=== PATIENT | male | born 1985 | race Caucasian/White ===

== ENCOUNTER 2017-07-18 01:53 | Emergency (ER) | payer BC ==
[~2017-07-18] VITALS: Ht 175.3 cm; Wt 93.0 kg
[~2017-07-18 01:53] MED LIST: PROT40TA PO; RISP2TAB2 PO; RIVA20 PO; ROXI30TA14 PO; XANA1TAB6 PO
[2017-07-18 01:55] VITALS: BP 173/88; PULSE 114; RESP 16; TEMP 97.7; O2SAT 99
--- NOTE | 2017-07-18 03:52 | RADRPT ---
EXAM DATE/TIME: 07/18/2017 03:28 [facility] COMPARISON: CHEST SINGLE AP, June 20, 2015, 16:05. INDICATIONS : Shortness of breath, chest pain. MEDICAL HISTORY : None. SURGICAL HISTORY : None. ENCOUNTER: Initial ACUITY: 1 day PAIN SCORE: 0/10 LOCATION: Bilateral chest FINDINGS: A single view of the chest demonstrates the lungs to be symmetrically aerated without evidence of mas s, infiltrate or effusion. The cardiomediastinal contours are unremarkable. Osseous structures are intact. CONCLUSION: No evidence of acute cardiopulmonary disease. Gideon Hillman MD on July 18, 2017 at 3:50 Board Certified Radiologist. This report was verified electronically.
--- NOTE | 2017-07-18 03:56 | PD ---
HPI Chief Complaint: Abdominal Pain Time Seen by Provider: 03:26 Travel History International Travel<30 days: No Contact w/Intl Traveler<30days: No Traveled to known affect area: No History of Present Illness HPI The patient is a 32 year old male who presents to the [facility] emergency department with a history of abdominal pain that began 2 days ago. It was coming and going and now is becoming constant. 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 He has been experiencing increased indigestion and acid reflux. He is taking Protonix twice daily. He has a history of gastroparesis, dx in 2011. His GI doctor, Dr. Denney in [facility]. In spite of taking Zofran he continues to have vomiting. He has had n/v 6-7 x today. He has not had any blood in his vomit. He has blood on the TP when he wipes however he reports having a history of hemorrhoids. He has chronic diarrhea, usually 2-4 x per day. He is on Xarelto for anticoagulation and has been on this for the last 2 years. He has had hot flashes, night sweats- that began last week. He has urinary incontinence with difficulty starting his stream of urine for 3 years- unknown cause. On review of systems, he denies having any recent fevers, cough, congestion, neck pain, shortness of breath, new urinary symptoms, or neurologic symptoms. He has protein C deficiency. He is followed by a field service tech in [place], [place]. [facility] Past Medical History Narrative Medical The patient's past medical history is significant for gastroparesis, acid reflux , pulmonary embolism, protein C deficiency, anxiety and depression. Hx Anticoagulant Therapy: Yes (XARALTO) Blood Disorders: No Anxiety: Yes Depression: Yes Heart Rhythm Problems: No Cancer: No Cardiovascular Problems: No High Cholesterol: No Chemotherapy: No Chest Pain: No Congestive Heart Failure: No Diabetes: No Diminished Hearing: No Endocrine: No Gastrointestinal Disorders: Yes (IBS, ESOPHAGITIS, RECTAL WALL COLLAPSE) GERD: Yes Genitourinary: No Hypertension: No Immune Disorder: No Implanted Vascular Access Dvce: No Musculoskeletal: No Neurologic: No Psychiatric: Yes Respiratory: Yes (PNA 2014) Immunizations Current: Yes Radiation Therapy: No Thyroid Disease: No Ulcer: No Tetanus Vaccination: < 5 Years Influenza Vaccination: Yes Past Surgical History Narrative Surgical The patient's past surgical history is significant for a cholecystectomy, wisdom teeth, tonsillectomy. Cholecystectomy: Yes (11/2012) Oral Surgery: Yes (2003 - WISDOM TEETH REMOVAL) Tonsillectomy: Yes (03/22/2008) Other Surgery: Yes (wisdom teeth removed and t and a) Social History Alcohol Use: No Tobacco Use: Yes (10/18 ppd) Substance Use: No Allergies-Medications (Allergen,Severity, Reaction): Coded Allergies: morphine (Unverified Allergy, Severe, Cardiac Arrest, 07/18/17) per patient, coded in evac after given morphine. 03/12/14: PT DENIES tramadol (Unverified Adverse Reaction, Intermediate, hives, 07/18/17) Reported Meds & Prescriptions Reported Meds & Active Scripts Active Reported Xarelto 20 Mg Tab (Rivaroxaban) 20 Mg Tab 20 Mg PO DAILY Protonix (Pantoprazole Sodium) 40 Mg Tab 40 Mg PO DAILY Roxicodone (Oxycodone HCl) 30 Mg Tab 30 Mg PO QID PRN Risperdal (Risperidone) 2 Mg Tab 2 Mg PO HS Xanax 1 mg (Alprazolam) Alprazolam 1 mg Tab 2 Mg PO QID Review of Systems Except as stated in HPI: all other systems reviewed are Neg General / Constitutional: No: Fever Eyes: No: Visual changes HENT: No: Headaches Cardiovascular: Positive: Chest Pain or Discomfort (radiation from his midepi abdominal pain) Respiratory: No: Cough, Shortness of Breath Gastrointestinal: Positive: Nausea, Vomiting, Diarrhea, Abdominal Pain, Indigestion, No: Hematemesis, Constipation, Loss of Appetite Genitourinary: No: Dysuria Musculoskeletal: No: Pain Skin: No Rash Neurologic: No: Weakness Psychiatric: No: Depression Endocrine: No: Polydipsia Hematologic/Lymphatic: No: Easy Bruising Physical Exam Narrative General: The patient is well-developed well-nourished male in no acute distress. Head and Neck exam: Head is normocephalic atraumatic. Eyes: EOMI, pupils are equal round and reactive to light. Nose: Midline septum with pink mucous membranes Mouth: Dentition unremarkable. Moist mucus membranes. Posterior oropharynx is not erythematous. No tonsillar hypertrophy. Uvula midline. Airway patent. Neck: No palpable lymphadenopathy. No nuchal rigidity. No thyromegaly. Cardiovascular: Regular rate and rhythm without murmurs, gallops, or rubs. Lungs: Clear to auscultation bilaterally. No wheezes, rhonchi, or rales. Abdomen: Soft, with tenderness on palpation of the midepigastric area and bilateral lower quadrants of the abdomen as well as the suprapubic area and left lower quadrant of the abdomen. No guarding, rebound, or rigidity. No tenderness specifically on palpation over McBurney's point. Negative Hernández's sign Extremities: No clubbing, cyanosis, or edema. 2+ pulses in all 4 extremities. No calf tenderness on palpation. Back: No spinous process tenderness to palpation. The patient reports bilateral CVA tenderness on palpation. Neurologic Exam: Grossly nonfocal. Skin Exam: No rash noted. Intact skin that is warm and dry. Data Data Last Documented VS Vital Signs Date Time Temp Pulse Resp B/P (MAP) Pulse Ox O2 Delivery O2 Flow Rate FiO2 07/18/17 01:55 97.7 114 16 173/88 (116) 99 Room Air Orders Orders Electrocardiogram (07/18/17 03:27) Complete Blood Count With Diff (07/18/17 03:27) Comprehensive Metabolic Panel (07/18/17 03:27) Prothrombin Time / Inr (Pt) (07/18/17 03:27) Act Partial Throm Time (Ptt) (07/18/17 03:27) C-Reactive Protein (Crp) (07/18/17 03:27) Lipase (07/18/17 03:27) Urinalysis - C+S If Indicated (07/18/17 03:27) Westergren Sedimentation Rate (07/18/17 03:27) Chest, Single Ap (07/18/17 03:27) Iv Access Insert/Monitor (07/18/17 03:27) Ecg Monitoring (07/18/17 03:27) Oximetry (07/18/17 03:27) Ct Pulmonary Angiogram (07/18/17 03:27) Ct Abd/Pel W Iv Contrast(Rout) (07/18/17 04:51) Hydromorphone Pf Inj (Dilaudid Pf Inj) (07/18/17 05:00) Sodium Chlor 0.9% 1000 Ml Inj (Ns 1000 M (07/18/17 05:00) Ondansetron Inj (Zofran Inj) (07/18/17 05:00) Iohexol 350 Inj (Omnipaque 350 Inj) (07/18/17 05:04) Labs Laboratory Tests Test 07/18/17 03:30 White Blood Count 8.7 TH/MM3 Red Blood Count 4.80 MIL/MM3 Hemoglobin 15.2 GM/DL Hematocrit 43.1 % Mean Corpuscular Volume 90.0 FL Mean Corpuscular Hemoglobin 31.7 PG Mean Corpuscular Hemoglobin Concent 35.2 % Red Cell Distribution Width 12.9 % Platelet Count 208 TH/MM3 Mean Platelet Volume 8.9 FL Neutrophils (%) (Auto) 41.1 % Lymphocytes (%) (Auto) 47.0 % Monocytes (%) (Auto) 4.0 % Eosinophils (%) (Auto) 7.4 % Basophils (%) (Auto) 0.5 % Neutrophils # (Auto) 3.6 TH/MM3 Lymphocytes # (Auto) 4.1 TH/MM3 Monocytes # (Auto) 0.3 TH/MM3 Eosinophils # (Auto) 0.6 TH/MM3 Basophils # (Auto) 0.0 TH/MM3 CBC Comment DIFF FINAL Differential Comment Erythrocyte Sedimentation Rate 29 mm/hr Prothrombin Time 10.3 SEC Prothromb Time International Ratio 0.9 RATIO Activated Partial Thromboplast Time 32.7 SEC Urine Color LIGHT-YELLOW Urine Turbidity CLEAR Urine pH 5.5 Urine Specific Mobile 1.005 Urine Protein NEG mg/dL Urine Glucose (UA) NEG mg/dL Urine Ketones NEG mg/dL Urine Occult Blood NEG Urine Nitrite NEG Urine Bilirubin NEG Urine Urobilinogen LESS THAN 2.0 MG/DL Urine Leukocyte Esterase NEG Urine RBC LESS THAN 1 /hpf Urine WBC LESS THAN 1 /hpf Urine Mucus FEW /lpf Microscopic Urinalysis Comment CULT NOT INDICATED Blood Urea Nitrogen 5 MG/DL Creatinine 1.06 MG/DL Random Glucose 81 MG/DL Total Protein 8.2 GM/DL Albumin 4.2 GM/DL Calcium Level 8.8 MG/DL Alkaline Phosphatase 94 U/L Aspartate Amino Transf (AST/SGOT) 25 U/L Alanine Aminotransferase (ALT/SGPT) 20 U/L Total Bilirubin 0.4 MG/DL Sodium Level 134 MEQ/L Potassium Level 3.5 MEQ/L Chloride Level 99 MEQ/L Carbon Dioxide Level 27.3 MEQ/L Anion Gap 8 MEQ/L Estimat Glomerular Filtration Rate 81 ML/MIN C-Reactive Protein 1.80 MG/DL Lipase 172 U/L MDM Medical Decision Making Medical Screen Exam Complete: Yes Emergency Medical Condition: Yes Medical Record Reviewed: Yes Differential Diagnosis Electrolyte arrangements, versus dehydration, versus pancreatitis, versus colitis, versus diverticulitis, versus gastroparesis exacerbation, versus recurrent pulmonary embolism Narrative Course During the course of the patients emergency department visit, the patients history, examination, and differential diagnosis were reviewed with the patient. The patient had IV access obtained and blood work sent for analysis. The patient was placed on a cardiac tech with oximetry and blood pressure monitoring. The patient was initially provided normal saline 1 L IV fluid bolus, hydromorphone 0.5 mg IV, Zofran 4 mg IV. The patients laboratory studies were reviewed and remarkable for a white count of 8.7, hemoglobin 15.2, platelets 208 with lymphocytes 47, eosinophils 7.4, sedimentation rate 29, CMP is remarkable for a sodium of 134, BUN 5, GFR of 81, C-reactive protein 1.80, lipase 172, PT 10.3, PTT 32.7, urinalysis is unremarkable. Radiology studies were reviewed and remarkable for a CTA to rule out PE that shows no evidence of PE, stable upper limits of normal mediastinal and bilateral hilar lymph nodes. CT scan of the abdomen and pelvis shows no acute abnormality. The patient on reexamination was feeling improved with hydration and pain relief. The patient's results were discussed with him. I suspect that the patient's symptoms are related to a gastroparesis exacerbation. He is instructed to follow-up with his service desk agent and primary care physician. He is instructed to continue on his usual medication regimen. The patient reports that he does have Zofran at home for nausea. The patient is resting comfortably and feels better, is alert and in no distress. The patients results and examination findings were discussed with the patient. The repeat examination is unremarkable and benign. The history, exam, diagnostic testing, and current condition do not suggest any significant pathology to warrant further testing, continued ED treatment, admission, or surgical evaluation at this point. The vital signs have been stable. The patient does not have uncontrollable pain, intractable vomiting, or other significant symptoms. The patient's condition is stable and appropriate for discharge. The patient will pursue further outpatient evaluation with a primary care physician or other designated or consulting physician as indicated in the discharge instructions. The patient expressed understanding and was agreeable with this plan. Diagnosis Primary Impression: Abdominal pain Qualified Codes: R10.13 - Epigastric pain Additional Impression: Gastroparesis Referrals: Facs Teacher 1 week Primary Care Physician 2 days Patient Instructions: Abdominal Pain (ED), Acute Nausea and Vomiting (ED), Gastroparesis (ED), General Instructions Med/Other Pt SpecificInfo: No Change to Meds Disposition: 01 DISCHARGE HOME Condition: Stable Gloria Lira MD Jul 18, 2017 03:56
[2017-07-18 04:27] LABS: AUTOMATED NEUTROPHIL # 3.6 TH/MM3 (1.8-7.7); BASOPHIL % 0.5 % (0.0-2.0); EOSINOPHIL # 0.6 TH/MM3 (0-0.4); EOSINOPHIL % 7.4 % (0.0-4.0); HEMATOCRIT 43.1 % (39.0-51.0); HEMO FLAGS DIFF FINAL; LYMPHOCYTE # 4.1 TH/MM3 (1.0-4.8); MEAN CORPUSCULAR HEMOGLOBIN 31.7 PG (27.0-34.0); MEAN CORPUSCULAR HGB CONC 35.2 % (32.0-36.0); NEUT % 41.1 % (16.0-70.0); PLATELET COUNT 208 TH/MM3 (150-450); RED CELL DISTRIBUTION WIDTH 12.9 % (11.6-17.2); WHITE BLOOD COUNT 8.7 TH/MM3 (4.0-11.0)
[2017-07-18 04:30] LABS: BLOOD, URINE NEG (NEG); COMMENT (UR) CULT NOT INDICATED; CULTURE IF INDICATED CULT NOT INDICATED; GLUCOSE,URINE NEG (NEG); KETONE, URINE NEG (NEG); MUCUS URINE FEW /lpf (OCC); NITRITE,URINE NEG (NEG); PH, URINE 5.5 (5.0-8.5); URINE COLOR LIGHT-YELLOW (YELLW/STRAW)
[2017-07-18 04:32] LABS: ALKALINE PHOSPHATASE 94 U/L (45-117); TOTAL BILIRUBIN ADULT 0.4 MG/DL (0.2-1.0)
[2017-07-18 04:36] LABS: ALT (GPT) 20 U/L (12-78); ANION GAP 8 MEQ/L (5-15); AST (GOT) 25 U/L (15-37); BICARBONATE 27.3 MEQ/L (21.0-32.0); BLOOD UREA NITROGEN 5 MG/DL (7-18); CHLORIDE 99 MEQ/L (98-107); GLOMERULAR FILTRATION RATE 81 ML/MIN (>89); SODIUM (NA) 134 MEQ/L (136-145)
[2017-07-18 04:38] LABS: POTASSIUM 3.5 MEQ/L (3.5-5.1)
[2017-07-18 04:45] LABS: APTT (PATIENT) 32.7 SEC (24.3-30.1); INTERNATIONAL NORMALIZED RATIO 0.9 RATIO; PROTHROMBIN TIME - PATIENT 10.3 SEC (9.8-11.6)
[2017-07-18] MEDS ORDERED: HYDROmorphone HCL PF 1 MG/ML VIAL IV PUSH ONE (05:00)
[2017-07-18] MEDS ORDERED: SODIUM CHLOR 0.9% 1000 ML INJ 1,000 ML IV ONE (05:00)
[2017-07-18] MEDS ORDERED: ONDANSETRON HCL 4 MG/2 ML VIAL IV PUSH ONE (05:00)
[2017-07-18] MEDS ORDERED: IOHEXOL 350 MG/ML 10 ML VIAL (for RAD DIAG) IVCONTRAST ONE (05:04)
--- NOTE | 2017-07-18 05:30 | RADRPT ---
EXAM DATE/TIME: 07/18/2017 05:01 [facility] COMPARISON: CT PULMONARY ANGIOGRAM, June 20, 2015, 17:30. INDICATIONS : Chest pain with vomiting. IV CONTRAST: 74 cc Omnipaque 350 (iohexol) IV ; Cumulative dose for multiple exams. RADIATION DOSE: 23.38 CTDIvol (mGy) MEDICAL HISTORY : Gastroparesis. Gastroesophageal reflux disease. Pulmonary embolism. SURGICAL HISTORY : Cholecystectomy. ENCOUNTER: Initial ACUITY: 2 days PAIN SCALE: 9/10 LOCATION: Bilateral lower chest TECHNIQUE: Volumetric scanning of the chest was performed using a pulmonary embolism protocol MIP images were re constructed. Using automated exposure control and adjustment of the mA and/or kV according to patien t size, radiation dose was kept as low as reasonably achievable to obtain optimal diagnostic quality images. DICOM format image data is available electronically for review and comparison. Follow-up recommendations for detected pulmonary nodules are based at a minimum on nodule size and pa tient risk factors according to Fleischner Society Guidelines. FINDINGS: PULMONARY ARTERIES: No filling defects are seen in the pulmonary arteries through the segmental level. LUNGS: There is no consolidation or pneumothorax . 4 mm subpleural right middle lobe nodule stable. Previou sly seen areas of peripheral parenchymal consolidation on the prior CT have resolved, as has the pleu ral effusions. No no/concerning pulmonary nodule is visualized. PLEURAE: There is no pleural thickening or pleural effusion. MEDIASTINUM: Normal heart size. No coronary artery calcification seen. There are scattered mediastinal and bilater al hilar lymph nodes that measure up to 14 mm in size, similar to before. MUSCULOSKELETAL: Within normal limits for patient age. MISCELLANEOUS: The visualized upper abdominal organs demonstrate no acute abnormality. CONCLUSION: No pulmonary embolus or other acute cardiopulmonary disease demonstrated. Stable upper limits of norm al mediastinal and bilateral hilar lymph nodes. Gideon Hillman MD on July 18, 2017 at 5:26 Board Certified Radiologist. This report was verified electronically.
--- NOTE | 2017-07-18 05:33 | RADRPT ---
EXAM DATE/TIME: 07/18/2017 05:01 [facility] COMPARISON: No previous studies available for comparison. INDICATIONS : Epigastric pain, vomiting for 2 days. IV CONTRAST: 74 cc Omnipaque 350 (iohexol) IV ; Cumulative dose for multiple exams. ORAL CONTRAST: No oral contrast ingested. RADIATION DOSE: 15.32 CTDIvol (mGy) MEDICAL HISTORY : Gastroesophageal reflux disease. Gastroparesis. Pulmonary emboli. SURGICAL HISTORY : Cholecystectomy. ENCOUNTER: Initial ACUITY: 2 days PAIN SCALE: 9/10 LOCATION: Bilateral upper quadrant TECHNIQUE: Volumetric scanning of the abdomen and pelvis was performed. Using automated exposure control and ad justment of the mA and/or kV according to patient size, radiation dose was kept as low as reasonably achievable to obtain optimal diagnostic quality images. DICOM format image data is available electro nically for review and comparison. FINDINGS: LOWER LUNGS: The visualized lower lungs are clear. LIVER: Homogeneous density without lesion. There is no dilation of the biliary tree. Previous cholecystecto my. SPLEEN: Normal size without lesion. PANCREAS: Within normal limits. KIDNEYS: Normal in size and shape. There is no mass, stone or hydronephrosis. ADRENAL GLANDS: Within normal limits. VASCULAR: There is no aortic aneurysm. BOWEL/MESENTERY: The stomach, small bowel, and colon demonstrate no acute abnormality. There is no free intraperitone al air or fluid. Normal appendix. ABDOMINAL WALL: Within normal limits. RETROPERITONEUM: There is no lymphadenopathy. BLADDER: No wall thickening or mass. REPRODUCTIVE: Within normal limits. INGUINAL: There is no lymphadenopathy or hernia. MUSCULOSKELETAL: No acute bony abnormality demonstrated. CONCLUSION: No acute abnormality demonstrated. Gideon Hillman MD on July 18, 2017 at 5:28 Board Certified Radiologist. This report was verified electronically.
== END 2017-07-18 06:41 | disposition home or self-care (01) ==
LOC: NEPE 01:53
DX: K31.84 Gastroparesis (principal); R07.9 Chest pain, unspecified; R06.02 Shortness of breath; K21.9 Gastro-esophageal reflux disease without esophagitis; D68.59 Other primary thrombophilia; K58.9 Irritable bowel syndrome, unspecified; F17.200 Nicotine dependence, unspecified, uncomplicated; Z79.899 Other long term (current) drug therapy; Z86.711 Personal history of pulmonary embolism
CPT/HCPCS: 71010; 71275; 74177; 80053; 81001; 83690; 85025; 85610; 85652; 85730; 86140; 96374; 96375; 99285; J1170; J2405; J7030; Q9967